=== PATIENT | female | born 1960 | race Caucasian/White ===

== ENCOUNTER 2021-11-10 05:54 | Emergency (ER) | payer SELFPAY ==
[2021-11-10 05:56] VITALS: BP 139/80; PULSE 90; RESP 20; TEMP 36.9; O2SAT 93; BMI 33.4
[2021-11-10 06:19] VITALS: BP 124/77; PULSE 88; RESP 16; O2SAT 97
--- NOTE | 2021-11-10 06:19 | XR_ITS ---
FINAL REPORT CLINICAL HISTORY: COUGH SHORTNESS OF AIR COMPARISON: November 27, 2015 FINDINGS: Two views of the chest were obtained. The heart size and pulmonary vascularity are within normal limits. The mediastinum is normal. There is mild bronchial wall thickening. There is no pneumothorax. The bony thorax is intact. IMPRESSION: Mild bronchial wall thickening may represent bronchitis. Reviewed, Interpreted and Dictated by Hal Conde III, MD Transcribed by Messi Diaz Authenticated by Hal Conde III, MD on 11/10/2021 07:18:11 AM [facility]
[2021-11-10 06:26] LABS: Influenza A, PCR Not Detected (NotDetected); Influenza B, PCR Not Detected (NotDetected)
[2021-11-10 06:34] LABS: Basophils % 0.5 % (0.1-2.0); Chloride 100 mmol/L (98-107); Eosinophils % 0.7 % (0.1-12.0); Hematocrit 42.1 % (37.0-47.0); Hemoglobin 13.7 g/dL (12.2-16.2); Lymphocytes # 0.8 K/mm3 (0.7-4.5); Lymphocytes % 18.9 % (10-50); Mean Corpuscular HGB Conc 32.7 g/dL (31.8-35.4); Mean Corpuscular Hemoglobin 30.4 pg (27.0-31.2); Mean Platelet Volume 8.3 fl (7.4-10.4); Monocytes # 0.2 K/mm3 (0.1-1.0); Monocytes % 4.9 % (1.7-9.3); Neutrophils % 75.1 % (37.0-80.0); Platelet Count 162 K/mm3 (142-424); Potassium 3.3 mmoL/L (3.5-5.1); Red Blood Count 4.52 M/mm3 (4.20-5.40); Red Cell Distribution Width 13.3 % (11.5-17.5); Sodium 136 mmol/L (136-145)
[2021-11-10 06:36] LABS: Alanine Aminotransferase 25 U/L (12-78); Aspartate Amino Transferase 65 U/L (14-36); Blood Urea Nitrogen 12 mg/dl (7-17); Creatinine Clearance Estimated 105 mL/min (50-200); Estimated Glomerular Filt Rate 64 ml/min (>60); GFR (African American) 77 ML/MIN (>60)
[2021-11-10 06:37] LABS: Albumin Level 3.8 g/dl (3.5-5.0); Albumin/Globulin Ratio 1.3 (1.1-1.8); Alkaline Phosphatase 95 U/L (38-126); Anion Gap 4.3 mEq/L (5-15); Bilirubin,Total 0.4 mg/dl (0.2-1.3); Calcium 7.6 mg/dl (8.4-10.2); Carbon Dioxide 35 mmol/L (22.0-30.0); Glucose 99 mg/dl (74-100); Total Protein,Serum 6.8 g/dl (6.3-8.2)
[2021-11-10 06:42] LABS: C-Reactive Protein 26.7 mg/L (0-4)
--- NOTE | 2021-11-10 06:57 | HMH.EDSOB ---
ED Disposition Clinical Impression: COVID-19, Tobacco use, Obesity (BMI 30-39.9) Disposition: Home, Self-Care Condition on Discharge: Good Instructions: DI for COVID-19 (Suspected or Confirmed ) Additional Instructions: use meds and see pcp for follow up Prescriptions: dexAMETHasone [Decadron] 6 mg PO DAILY #6 tab Transmission Status: Pending to [facility] levoFLOXacin [Levaquin 500mg tab] 500 mg PO DAILY #7 tab Transmission Status: Pending to [facility] Referrals: Brian Noonan MD [Primary Care Provider] - - Critical Care Critical Care Time: No Attestation: On , the high probability of a clinically significant, sudden or life threatening deterioration of the following system(s) required my full and direct attention, intervention and personal management. The time I documented below is in addition to time spent performing reported procedures but includes the following listed in this critical care notation. Medical Decision Making - Medical Records Medical records reviewed: Yes: I reviewed the patient's medical records. - Suresh Inquiry Pt receiving controlled substance: No Vital Signs: 11/10/21 05:56 11/10/21 06:19 Temperature 98.4 F Temperature Source Oral Pulse Rate 88 Pulse Rate [Left Radial] 90 Respiratory Rate 20 16 Blood Pressure 124/77 Blood Pressure [Left Arm] 139/80 Blood Pressure Mean [Left Arm] 99 Blood Pressure Source [Left Arm] Automatic Cuff Blood Pressure Position [Left Arm] Sitting 02 Sat by Pulse Oximetry 93 L 97 Oxygen Delivery Method Room Air Room Air - Lab Data Lab results reviewed: Yes: I reviewed the patient's lab results. Lab Results 11/10/21 06:10: WBC 4.0 L, RBC 4.52, Hgb 13.7, Hct 42.1, MCV 93.0, MCH 30.4, MCHC 32.7, RDW 13.3, Plt Count 162, MPV 8.3, Neut % (Auto) 75.1, Lymph % (Auto) 18.9, [place] % (Auto) 4.9, Eos % (Auto) 0.7, Baso % (Auto) 0.5, Neut # (Auto) 3.0, Lymph # (Auto) 0.8, [place] # (Auto) 0.2, Eos # (Auto) 0.0, Baso # (Auto) 0.0 11/10/21 06:10: Sodium 136, Potassium 3.3 L, Chloride 100, Carbon Dioxide 35 H, Anion Gap 4.3 L, BUN 12, Creatinine 0.90, Estimated Creat Clear 105, Estimated GFR 64, Est GFR ( Amer) 77, Glucose 99, Calcium 7.6 L, Total Bilirubin 0.4, AST 65 H, ALT 25, Alkaline Phosphatase 95, C-Reactive Protein 26.7 H, Total Protein 6.8, Albumin 3.8, Globulin 3.0, Albumin/Globulin Ratio 1.3 11/10/21 06:10: SARS-CoV-2 (PCR) Detected A, Influenza A Untype (PCR) Not detected, Influenza Type B (PCR) Not detected 11/10/21 06:10: ESR 18 Result diagrams: 11/10/21 06:10 11/10/21 06:10 Orders (Tests/Meds): ED MEDICATIONS Discontinued Medications Generic Name Dose Route Start Last Admin Trade Name Freq PRN Reason Stop Dose Admin Dexamethasone Sodium Phosphate 10 mg 11/10/21 07:22 11/10/21 07:24 Dexamethasone 4mg/Ml 5ml Mdv IV 11/10/21 07:23 10 mg ONCE ONE Administration Sodium Chloride 1,000 mls @ 999 mls/hr 11/10/21 06:30 11/10/21 06:23 Sod Chlor 0.9% 1000ml Bag IV 11/10/21 07:30 999 mls/hr .Q1H1M GULSHAN Administration ORDERS Category Date Time Status Procalcitonin Stat Lab 11/10/21 06:10 Received UA [Urinalysis and Microscopic] Stat Lab 11/10/21 07:25 Ordered - Radiology Data #1 Image(s): Chest Image Reviewed: Yes I have reviewed radiologist's interpretation Preliminary Findings: Abnormal (see report ) Medical Decision Narrative: has covid-19 with stable exam and cxr - discussed precautions and follow up and limit tob Resp/SOB HPI - General Chief Complaint: Upper Respiratory Infection Stated Complaint: sick x1 month pimple in nose,? UTI Time Seen by Provider: 11/10/21 06:20 Mode of Arrival: Ambulatory Source of Information: Patient, Medical Record Limitations: No Limitations Description of Symptoms (Recalled from ER Triage Doc. by RN): TIRED X 1 MONTH, PIMPLE IN NOSE X 1 MONTH, NOSE BLEED THREE WEEKS AGO, COUGH BUT REPORTS THIS IS CHRONIC RELATED TO SMOKI
[2021-11-10 07:02] LABS: Coronavirus 19, PCR Detected (NotDetected)
[2021-11-10 07:13] LABS: Erythrocyte Sedimentation Rate 18 mm/hr (0-30)
[2021-11-10 07:45] LABS: Microscopic, Urine URINE MICROSCOPIC (MICROSCOPIC)
[2021-11-10 08:00] LABS: Appearance,Urine CLEAR (Clear); Blood, Urine TRACE-I (Negative); Color,Urine ORANGE (Yellow); Glucose,Urine (UA) 1+ (Negative); Ketones,Urine TRACE (Negative); Leukocyte Esterase,Urine 2+ (Negative); Nitrate,Urine POSITIVE (Negative); Protein,Urine 2+ (Negative); Specific Gravity, Urine 1.025 (1.005-1.030); Urobilinogen,Urine >=8.0 EU/dl (0.2)
--- NOTE | 2021-11-10 08:00 | PC.NURSE ---
RT at bedside performing teaching for use of inhaler with aerochamber.
[2021-11-10 08:03] LABS: Procalcitonin 0.066 ng/mL (0.0-2.0)
[2021-11-10 08:08] LABS: Bilirubin,Urine 1+ (Negative)
[2021-11-10 08:13] LABS: Bacteria,Urine 1+ /lpf; Mucus,Urine Trace /lpf; RBC,Urine Occasional #/hpf (0-3)
[2021-11-10 08:24] VITALS: BP 121/78; PULSE 90; RESP 16; TEMP 36.9; O2SAT 96
== END 2021-11-10 08:25 | disposition home or self-care (01) ==
PROVIDERS: Emergency Provider Emergency Medicine; PCP Emergency Medicine
DX: N30.00 Acute cystitis without hematuria (principal); U07.1 COVID-19; F17.210 Nicotine dependence, cigarettes, uncomplicated
CPT/HCPCS: 71046; 80053; 81001; 84145; 85025; 85651; 86140; 87086; 96365; 96375; 99283; 99284; C9803; U0003; U0005

== ENCOUNTER 2021-11-25 13:52 | Emergency (ER) | payer SELFPAY ==
[2021-11-25 14:00] VITALS: BP 161/87; PULSE 81; RESP 17; TEMP 37.2; O2SAT 97; BMI 36.5
--- NOTE | 2021-11-25 14:33 | HMH.EDUTC ---
[facility] Disposition Clinical Impression: Encounter for laboratory testing for COVID-19 virus Disposition: Home, Self-Care Condition on Discharge: Good Instructions: DI for COVID-19 (Suspected or Confirmed ), Preventing the Spread of Coronavirus Discharge Instructions Additional Instructions: *Monitor Temp, Over the counter Motrin or Tylenol as directed/as needed Tylenol every 4 hours and Motrin every 6 hours (as long as your family doctor has told you that you can take it) for fever or pain. and straight to ER if unable to lower temp less than 101.0 after medication given Follow up IMMEDIATELY for new or worsening symptoms or no Noticeable improvement over the next 48-72 hours. 911 for difficulty breathing or swallowing You were tested for today for COVID19 your test result should be back in the next 24-48 hours, you may check your test results on the [facility] if you have trouble logging on you may call support Make sure to take your Vitamins Vit. C Vit D and Zinc if you can take them Referrals: Brian Noonan MD [Primary Care Provider] - As needed Time of Disposition: 14:35 Medical Decision Making - Suresh Inquiry Pt receiving controlled substance: No Suresh was queried for this patient: No Vital Signs: 11/25/21 14:00 Temperature 98.9 F Temperature Source Oral Pulse Rate [Right Brachial] 81 Respiratory Rate 17 Blood Pressure [Right Arm] 161/87 H Blood Pressure Mean [Right Arm] 111 Blood Pressure Source [Right Arm] Automatic Cuff Blood Pressure Position [Right Arm] Sitting 02 Sat by Pulse Oximetry 97 Oxygen Delivery Method Room Air Orders (Tests/Meds): ORDERS Category Date Time Status Covid-19 Nasal PCR ([facility]) Routine Lab 11/25/21 14:05 Received [facility] HPI - General Stated complaint: covid test Time Seen by Provider: 11/25/21 14:34 Mode of Arrival: Ambulatory Source of Information: Patient Limitations: No Limitations Description of Symptoms (Recalled from Triage Doc. by RN): PATIENT NEEDS COVID TEST TO RETURN TO WORK. TESTED POSITIVE 2 WEEKS AGO HEENT Symptoms (Recalled from RN notes): No Resp Symptoms (Recalled from RN notes): No Skin Symptoms (Recalled from RN notes): No MS Symptoms (Recalled from RN notes): No Functional Status (Recalled from RN notes): WNL - History of Present Illness Provider Complaint: Patient state that she was positive for COVID about 2 weeks ago for COVID and came in today to see if she could get tested to see if she is negative now to return to work Denies any symptoms at this time - Related Data Previous Rx's Medication Instructions Recorded dexAMETHasone [Decadron] 6 mg PO DAILY #6 tab 11/10/21 levoFLOXacin [Levaquin 500mg 500 mg PO DAILY #7 tab 11/10/21 tab] Allergies Allergy/AdvReac Type Severity Reaction Status Date / Time No Known Allergies Allergy Verified 11/25/21 14:19 - Worker's Comp Is this a Worker's Comp case?: No [facility] History - Hepatitis A Screen Drug use history?: No High risk sexual behaviors?: No History of sexually transmitted infection?: No Currently employed?: No Childcare worker?: No Do you have indoor plumbing?: Yes Do you have electricity?: Yes Attestation statement:: This patient has been screened for Hepatitis A risk factors. I have reviewed the patient's past medical history: Yes ROS Obtained: Yes All systems reviewed & no additional complaints, Yes Systems reviewed as appropriate & no additional complaints - Constitutional Constitutional: Reports system reviewed and no additional complaints, except as docu, Denies body ache, Denies chills, Denies fever(s), Denies headache(s) - ENT Ears, Nose, Mouth, and Throat: Reports system reviewed and no additional complaints, except as docu, Denies nasal congestion, Denies nasal discharge, Denies sore throat - Cardiovascular Cardiovascular: Reports system reviewed and no additional complaints, except as docu - Respiratory Respiratory: Reports s
[2021-11-25 14:40] VITALS: BP 161/87; PULSE 81; RESP 17; TEMP 37.2; O2SAT 97
== END 2021-11-25 14:43 | disposition home or self-care (01) ==
PROVIDERS: Emergency Provider Nurse Practitioner; PCP Emergency Medicine
DX: Z03.89 Encounter for observation for other suspected diseases and conditions ruled out (principal); Z20.822 Contact with and (suspected) exposure to COVID-19
CPT/HCPCS: C9803; U0003; U0005

== ENCOUNTER 2022-10-26 14:34 | Inpatient (IN) | payer SELFPAY ==
[2022-10-26] VITALS (32 sets, daily range): BP systolic 126–186; BP diastolic 71–122; PULSE 68–91; RESP 14–22; TEMP 36.6–36.8; O2SAT 93–98; BMI 31.9
--- NOTE | 2022-10-26 15:02 | XR_ITS ---
FINAL REPORT CLINICAL HISTORY: SHORTNESS OF AIR COMPARISON: 11/10/2021 FINDINGS: Two views of the chest were obtained. The heart size and pulmonary vascularity are within normal limits. The mediastinum is normal. There is hyperinflation of the lungs consistent with COPD. There is a large left pneumothorax of approximately 70%. The bony thorax is intact. IMPRESSION: Approximately 70% left pneumothorax. Findings discussed with Dr. Mayen in the ED at the time of dictation. Reviewed, Interpreted and Dictated by Hal Conde III, MD Transcribed by Anastasia Parish Authenticated and [facility]
[2022-10-26 15:14] LABS: Coronavirus 19, PCR Not Detected (NotDetected); Influenza A, PCR Not Detected (NotDetected); Influenza B, PCR Not Detected (NotDetected)
--- NOTE | 2022-10-26 15:23 | PC.NURSE ---
PT TO XR
--- NOTE | 2022-10-26 15:32 | PC.NURSE ---
PT RETURNED FROM XR
--- NOTE | 2022-10-26 16:02 | PC.NURSE ---
DR DEMPSEY AT BEDSIDE
--- NOTE | 2022-10-26 16:07 | PC.NURSE ---
paged dr aleman
--- NOTE | 2022-10-26 16:10 | HMH.EDGENADL ---
Discharge Plan Disposition Patient Disposition: Admitted As Inpatient Condition: Good Prescriptions Prescriptions: No Action No Known Home Medications Referrals Follow up/Referrals: Provider,MD Agustin [Primary Care Provider] - See instructions Clinical Impressions Clinical Impression: Spontaneous pneumothorax, Breast mass, right, Axillary adenopathy Discharge ED Provider: Jhoan Mayen General Adult HPI General Chief complaint: Shortness of Breath/Dyspnea Stated complaint: SOA Nausea diarrhea cough congestion Time Seen by Provider: 10/26/22 16:01 Mode of Arrival: Wheelchair Limitations: No Limitations Description of Symptoms (Recalled from ER Triage Doc. by RN): PT REPORTS SHORTNESS OF BREATH X 1 WEEK, FATIGUE, COUGH AND CONGESTION History of Present Illness HPI narrative: Patient states that 6 days ago on Sunday she suddenly got short of breath. She initially had some pain in the left side of her chest and shoulder blade area which has since resolved. She feels congested in the chest . No fever. No sputum production. No hemoptysis. No leg pain or swelling. She has no chronic lung problems. She is a smoker. She is on no medications. Related Data Home Medications Medication Instructions Recorded Confirmed No Known Home Medications 10/26/22 10/26/22 Allergies Allergy/AdvReac Type Severity Reaction Status Date / Time No Known Allergies Allergy Verified 11/25/21 14:19 [facility] Disclaimer: The information contained in this section may have been updated after the patient was seen, as this information can be updated by other users. Medical History (Updated 10/26/22 @ 19:31 by Jhoan Mayen MD) Breast cancer Kidney stones Surgical History (Updated 10/26/22 @ 15:31 by Melony Chavis RN) History of back surgery History of lumpectomy Hx of cholecystectomy Hx of tonsillectomy Family History (Updated 10/26/22 @ 15:31 by Melony Chavis RN) Other No significant family history Social History (Updated 10/26/22 @ 15:31 by Melony Chavis RN) Smoking Status: Current every day smoker alcohol intake: never current occupational status: employed Travel in the last 8 weeks: None ROS Obtained: Yes Systems reviewed as appropriate & no additional complaints except as documented Constitutional Constitutional: Denies fever(s), Denies headache(s) and Denies weakness ENT Ears, Nose, Mouth, and Throat: Denies headache(s), Denies nasal discharge and Denies sore throat Cardiovascular Cardiovascular: Reports chest pain Respiratory Respiratory: Reports shortness of breath, Reports cough and Denies hemoptysis Gastrointestinal Gastrointestingal: Denies abdominal pain, constipation, diarrhea or vomiting Genitourinary Female Genitourinary: Denies difficulty voiding, Denies dysuria and Denies flank pain Musculoskeletal Musculoskeletal: Denies numbness Neurologic Neurologic: Denies headache(s), Denies numbness and Denies weakness Physical Exam General General appearance: alert and in no apparent distress Head Head exam: atraumatic and normocephalic Eye Eye exam: Present normal appearance and EOMI ENT ENT exam: Present mucous membranes moist Neck Neck exam: Present normal inspection and trachea midline Chest Chest inspection: Present normal inspection and symmetric chest wall rise Respiratory Respiratory exam: Present other (Decreased breath sounds left); Absent respiratory distress Cardiovascular Cardiovascular exam: Present regular rate, normal rhythm and normal heart sounds Abdominal Exam Abdominal exam: Present soft and normal bowel sounds; Absent distention, tenderness, guarding, rebound or rigidity Extremities Exam Extremities exam: Present normal inspection Neurological Exam Neurological exam: Present alert and oriented X3 Psychiatric Psychiatric exam: Present normal affect and normal mood Skin Skin exam: Present warm and dry Medical Decision Making
--- NOTE | 2022-10-26 16:11 | PC.NURSE ---
DR. DEMPSEY SPEAKING WITH DR. BAKER
[2022-10-26 16:18] LABS: Chloride 102 mmol/L (98-107); Potassium 3.9 mmoL/L (3.5-5.1); Sodium 140 mmol/L (136-145)
[2022-10-26 16:20] LABS: Blood Urea Nitrogen 9 mg/dl (7-17); Creatinine Clearance Estimated 89 mL/min (50-200); Estimated Glomerular Filt Rate 64 ml/min (>60); GFR (African American) 77 ML/MIN (>60)
--- NOTE | 2022-10-26 16:20 | PC.NURSE ---
CONSENT SIGNED FOR CHEST TUBE
[2022-10-26 16:21] LABS: Alanine Aminotransferase 13 U/L (12-78); Albumin/Globulin Ratio 1.3 (1.1-1.8); Alkaline Phosphatase 87 U/L (38-126); Anion Gap 7.9 mEq/L (5-15); Aspartate Amino Transferase 29 U/L (14-36); Bilirubin,Total 0.3 mg/dl (0.2-1.3); Carbon Dioxide 34 mmol/L (22.0-30.0)
[2022-10-26 16:22] LABS: Glucose 95 mg/dl (74-100)
--- NOTE | 2022-10-26 16:22 | PC.NURSE ---
1622 PT TO ROOM 2 AND PLACED ON IT SALES CONSULTANT, O2 APPLIED
--- NOTE | 2022-10-26 16:32 | PC.NURSE ---
DR. DEMPSEY AT BEDSIDE DISCUSSING POC
[2022-10-26 16:56] LABS: Basophils # 0.1 K/mm3 (0-0.2); Basophils % 0.6 % (0.1-2.0); Eosinophils # 0.1 K/mm3 (0.0-0.4); Eosinophils % 1.3 % (0.1-12.0); Hematocrit 48.6 % (37.0-47.0); Hemoglobin 15.5 g/dL (12.2-16.2); Lymphocytes # 1.2 K/mm3 (0.7-4.5); Lymphocytes % 16.4 % (10-50); Mean Corpuscular HGB Conc 31.8 g/dL (31.8-35.4); Mean Corpuscular Hemoglobin 28.9 pg (27.0-31.2); Mean Corpuscular Volume 90.8 fl (81-99); Mean Platelet Volume 8.5 fl (7.4-10.4); Monocytes # 0.4 K/mm3 (0.1-1.0); Monocytes % 5.9 % (1.7-9.3); Neutrophils # 5.5 K/mm3 (1.8-7.8); Neutrophils % 75.6 % (37.0-80.0); Platelet Count 406 K/mm3 (142-424); Red Blood Count 5.35 M/mm3 (4.20-5.40); Red Cell Distribution Width 13.7 % (11.5-17.5); White Blood Count 7.3 K/mm3 (4.8-10.8)
--- NOTE | 2022-10-26 17:21 | XR_ITS ---
PROCEDURE INFORMATION: Exam: XR Chest Exam date and time: 10/26/2022 5:22 PM Age: 62 years old Clinical indication: Device placement; Chest tube; Additional info: S/P chest tube TECHNIQUE: Imaging protocol: Radiologic exam of the chest. Views: 1 view. COMPARISON: CR XR CHEST 2V 10/26/2022 3:17 PM FINDINGS: Tubes, catheters and devices: Left chest tube in good position. Lungs: Large residual thick-walled bulla in the left mid lung. Consider further characterization with CT chest. Pleural spaces: Decreased left pneumothorax since comparison. Heart/Mediastinum: Unremarkable. No cardiomegaly. Bones/joints: Unremarkable. IMPRESSION: Large residual thick-walled bulla in the left mid lung. Consider further characterization with CT chest.
--- NOTE | 2022-10-26 17:32 | PC.NURSE ---
Had triple drum operator page Dr Isabel for consult on patient. Dr Mayen talking to Dr Isabel
--- NOTE | 2022-10-26 17:32 | PC.NURSE ---
DR. DEMPSEY SPEAKING WITH DR BAKER
--- NOTE | 2022-10-26 17:38 | PC.NURSE ---
FAMILY AT BEDSIDE
--- NOTE | 2022-10-26 17:47 | PC.NURSE ---
1636 LIDOCAINE PER ED MD HR 87 96% 15 158/111 1638 2.5MG VERSED GIVEN 1644 2.5MG VERSED HR 90 95% 20 158/102 1650 2.5MG VERSED HR 89 96% 16 137/89 1650 INCISION MADE 1654 2.5 MG VERSED 1655 SUTURED PER MD AT 14 AT THE SKIN HR 81 97% 15 181/103 1700 1 MG DILAUDID HR 80 96% 1 163/94 1705 BILATERAL LUNG SOUNDS AUSCULTATED PER DR. DEMPSEY 1709 XR AT BEDSIDE
--- NOTE | 2022-10-26 18:05 | CT_ITS ---
PROCEDURE INFORMATION: Exam: CT Chest Without Contrast; Diagnostic Exam date and time: 10/26/2022 6:22 PM Age: 62 years old Clinical indication: Device placement; Chest tube; Additional info: Ptx, ? bullae on re-expansion cxr TECHNIQUE: Imaging protocol: Diagnostic computed tomography of the chest without contrast. Radiation optimization: All CT scans at this facility use at least one of these dose optimization techniques: automated exposure control; mA and/or kV adjustment per patient size (includes targeted exams where dose is matched to clinical indication); or iterative reconstruction. Other protocol: This patient has received 0 known CTs and 0 known cardiac nuclear medicine studies in the 12 months prior to the current study. COMPARISON: CR XR CHEST PORTABLE 10/26/2022 5:22 PM FINDINGS: Tubes, catheters and devices: Left chest tube tip positioned in the left upper lobe pulmonary parenchyma. Repositioning recommended. Left chest tube tip positioned in the left upper lobe pulmonary parenchyma. Repositioning recommended. Lungs: Left lower lobe atelectasis. Left lower lobe atelectasis posterior segment. Pleural spaces: No significant residual pneumothorax. No significant residual pneumothorax. Heart: Minimal coronary artery calcifications. No cardiomegaly. No pericardial effusion. Lymph nodes: Extensive left axillary adenopathy concerning for metastatic breast cancer versus lymphoma. Vasculature: Unremarkable. No aortic aneurysm. Gallbladder and bile ducts: Cholecystectomy. Kidneys and ureters: Atrophic right kidney. Intraperitoneal space: Ascites. Bones/joints: Unremarkable. No acute fracture. Soft tissues: 3.9 cm right breast mass subareolar concerning for primary breast cancer. Subcutaneous emphysema left chest laterally. IMPRESSION: 1. Left chest tube tip positioned in the left upper lobe pulmonary parenchyma. Repositioning recommended. No significant residual pneumothorax. 2. Left chest tube tip positioned in the left upper lobe pulmonary parenchyma. Repositioning recommended. No significant residual pneumothorax. 3. 3.9 cm right breast mass subareolar concerning for primary breast cancer. 4. Extensive left axillary adenopathy concerning for metastatic breast cancer versus lymphoma. 5. Subcutaneous emphysema left chest laterally. COMMENTS: In the absence of a history or active diagnosis of lung cancer, it is recommended that this patient with emphysema be evaluated for enrollment in a low dose CT lung cancer screening program.
--- NOTE | 2022-10-26 18:15 | PC.NURSE ---
PT TO CT
--- NOTE | 2022-10-26 18:35 | PC.NURSE ---
PT RETURNED FROM CT
--- NOTE | 2022-10-26 18:39 | PC.NURSE ---
DR. DEMPSEY ATTEMPTED TO REACH HOSPITALIST, NO ANSWER
--- NOTE | 2022-10-26 18:54 | PC.NURSE ---
DR DEMPSEY SPEAKING WITH [employer] [facility]
--- NOTE | 2022-10-26 19:07 | PC.NURSE ---
DR. DEMPSEY SPEAKING WITH HOSPITALIST
--- NOTE | 2022-10-26 19:09 | PC.NURSE ---
DR DEMPSEY SPEAKING TO PASCUAL FOR ADMISSION
--- NOTE | 2022-10-26 19:16 | PC.NURSE ---
Dr Mayen talking to Dr Beltran about patient.
--- NOTE | 2022-10-26 19:19 | PC.NURSE ---
HOUSE CALLED FOR ADMISSION
--- NOTE | 2022-10-26 19:44 | PC.NURSE ---
Pt given dilaudid and ice chips per Dr Mayen.
--- NOTE | 2022-10-26 19:59 | EXP.HP ---
History of Present Illness *Admission Date: 10/26/22 *Reason for visit:: Shortness of air, chest pain *History of present illness: Ms. Long is a 62-year-old female who presented to [facility] due to a 6-day history of shortness of air associated with left sided chest pain and left shoulder blade pain. In the ER imaging of the chest showed a 70% pneumothorax on the left. The patient underwent CT placement with a 24 [place]ian chest tube for the pneumothorax. Imaging following the procedure showed a large residual thick walled bulla in the left mid lung zone and recommended a CT of the chest. CT of the chest showed re-expansion of the pneumothroax around the chest tube and recommended repositioning of the tube. ER Physician spoke with Surgeon commission associate who recommended no repositioning of the tube at this time and will follow in consultation. CT of the chest also showed concern for 3.9 cm right breast mass. The patient was seen in the ER following the procedure, the chest tube is currently on LWS at 20 cm H20. The plan of care to have surgery consult in the am, control pain was discussed with the patient on admission. ER Physician made the patient and family aware of CT findings on the right breast mass. [facility] Disclaimer: The information contained in this section may have been updated after the patient was seen, as this information can be updated by other users. Medical History Breast cancer Kidney stones Surgical History H/O: hysterectomy History of back surgery History of lumpectomy Hx of cholecystectomy Hx of tonsillectomy Family History No significant family history Social History Smoking Status: Current every day smoker alcohol intake: never current occupational status: employed Travel in the last 8 weeks: None Review of Systems Constitutional Constitutional: Denies headache(s) and Denies weakness Eyes Eyes: Reports system reviewed and no additional complaints, except as documented ENT Ears, Nose, Mouth, and Throat: Reports system reviewed and no additional complaints, except as documented and Denies headache(s) *Cardiovascular Cardiovascular: Reports chest pain and Reports dyspnea *Respiratory Respiratory: Reports dyspnea and Reports pain on inspiration *Gastrointestinal Gastrointestinal: Reports system reviewed and no additional complaints, except as documented *Genitourinary Genitourinary: Reports system reviewed and no additional complaints, except as documented *Musculoskeletal Musculoskeletal: Denies numbness Integumentary/Breasts Skin/Breast: Reports system reviewed and no additional complaints, except as documented *Neurologic Neurologic: Denies headache(s), Denies numbness and Denies weakness Psychiatric Psychiatric: Reports system reviewed and no additional complaints, except as documented Endocrine Endocrine: Reports system reviewed and no additional complaints, except as documented Hematologic/Lymphatic Hematologic/Lymphatic: Reports system reviewed and no additional complaints, except as documented Allergic/Immunologic Allergic/Immunologic: Reports system reviewed and no additional complaints, except as documented Meds Home Medications and Allergies Home Medications Medication Instructions Recorded Confirmed Type No Known Home Medications 10/26/22 10/26/22 History New Prescriptions to Start Prescriptions: Allergies Allergy/AdvReac Type Severity Reaction Status Date / Time No Known Allergies Allergy Verified 11/25/21 14:19 Exam Data for Last 24 hours Vital signs and Labs for Last 24 Hours: Temp Pulse Resp BP Pulse Ox 98.3 F 73 18 143/81 H 94 L 10/26/22 14:35 10/26/22 18:50 10/26/22 18:50 10/26/22 18:50 10/26/22 18:50 [place]
--- NOTE | 2022-10-26 20:27 | PC.NURSE ---
report called to AMIE Erwin
--- NOTE | 2022-10-26 23:25 | PC.NURSE ---
Pt arrived to floor via stretcher @ [id number]
[2022-10-27] VITALS (8 sets, daily range): BP systolic 118–154; BP diastolic 62–81; PULSE 66–80; RESP 16–22; TEMP 36.5–37.4; O2SAT 93–98; BMI 32.1; BMI 30.7
--- NOTE | 2022-10-27 02:35 | PC.NURSE ---
Pt report given to Sugey Burgess RN.
--- NOTE | 2022-10-27 04:39 | PC.NURSE ---
NO ACUTE CHANGES SINCE RECEIVING REPORT FROM Kadie FATIMA RN AT 0100. PT HAS RESTED WELL. NO C/O OF PAIN. 24F CHEST TUBE REMAINS IN PLACE. LUNG SOUNDS ARE DIMINISHED WITH FINE CRACKLES. VSS. CALL SWIFT WITHIN REACH.
--- NOTE | 2022-10-27 06:25 | EXP.SURG.CON ---
History of Present Illness *Admission Date: 10/26/22 *History of present illness: Ms. Long is a 62-year-old female who presented to [facility] due to a 6-day history of shortness of air associated with left sided chest pain and left shoulder blade pain. In the ER imaging of the chest showed a 70% pneumothorax on the left. The patient underwent CT placement with a 24 english chest tube for the pneumothorax. Imaging following the procedure showed reexpansion of pneumothorax but findings of a large residual thick walled bulla in the left mid lung zone and recommended a CT of the chest. CT of the chest showed re-expansion of the pneumothroax around the chest tube and interestingly recommended consideration of repositioning of the tube. Given these findings the ER physician ER Physician spoke with Surgeon sr. manager corporate communications who recommended no repositioning of the tube at this time as the lung was fully reexpanded with no evidence of any air leak and will follow in consultation. CT of the chest also showed concern for 3.9 cm right breast mass. She has a history of right-sided breast cancer treated in 1995 with lumpectomy and radiation. She states that she has not had imaging for quite some time. [facility] Disclaimer: The information contained in this section may have been updated after the patient was seen, as this information can be updated by other users. Medical History Breast cancer Kidney stones Surgical History H/O: hysterectomy History of back surgery History of lumpectomy Hx of cholecystectomy Hx of tonsillectomy Family History No significant family history Social History Smoking Status: Current every day smoker alcohol intake: never current occupational status: employed Travel in the last 8 weeks: None Review of Systems Constitutional Constitutional: Denies headache(s) and Denies weakness ENT Ears, Nose, Mouth, and Throat: Denies headache(s) *Musculoskeletal Musculoskeletal: Denies numbness *Neurologic Neurologic: Denies headache(s), Denies numbness and Denies weakness Meds Home Medications and Allergies Home Medications Medication Instructions Recorded Confirmed Type No Known Home Medications 10/26/22 10/26/22 History New Prescriptions to Start Prescriptions: Allergies Allergy/AdvReac Type Severity Reaction Status Date / Time No Known Allergies Allergy Verified 11/25/21 14:19 Exam (Inpt) Vital signs and Labs for Last 24 Hours: Temp Pulse Resp BP Pulse Ox 98.1 F 71 16 145/81 H 96 10/27/22 04:00 10/27/22 04:00 10/27/22 04:00 10/27/22 04:00 10/27/22 04:00 Laboratory Results - last 24 hr 10/26/22 14:55: SARS-CoV-2 (PCR) Not detected, Influenza A Untype (PCR) Not detected, Influenza Type B (PCR) Not detected 10/26/22 15:15: WBC 7.3, RBC 5.35, Hgb 15.5, Hct 48.6 H, MCV 90.8, MCH 28.9, MCHC 31.8, RDW 13.7, Plt Count 406, MPV 8.5, Neut % (Auto) 75.6, Lymph % (Auto) 16.4, [place] % (Auto) 5.9, Eos % (Auto) 1.3, Baso % (Auto) 0.6, Neut # (Auto) 5.5, Lymph # (Auto) 1.2, [place] # (Auto) 0.4, Eos # (Auto) 0.1, Baso # (Auto) 0.1 10/26/22 15:15: Sodium 140, Potassium 3.9, Chloride 102, Carbon Dioxide 34 H, Anion Gap 7.9, BUN 9, Creatinine 0.90, Estimated Creat Clear 89, Estimated GFR 64, Est GFR ( Amer) 77, Glucose 95, Calcium 9.0, Total Bilirubin 0.3, AST 29, ALT 13, Alkaline Phosphatase 87, Total Protein 7.0, Albumin 4.0, Globulin 3.0, Albumin/Globulin Ratio 1.3 I & O for Labs for Last 24 Hours: Intake & Output 10/24/22 10/25/22 10/26/22 10/27/22 11:59 11:59 11:59 11:59 Weight 212 lb 3.2 oz Constitutional: no acute distress Head: Present normocephalic Respiratory: Absent accessory muscle use Cardiac: Present Regular Rhythm GI: Present soft
--- NOTE | 2022-10-27 06:40 | XR_ITS ---
FINAL REPORT CLINICAL HISTORY: pneumothorax follow-up COMPARISON: 10/26/2022 FINDINGS: A single portable view of the chest was obtained. Left-sided chest tube remains in place. The heart size and pulmonary vascularity are within normal limits. The mediastinum is within normal limits. There is mild atelectasis in the left lung base. No pneumothorax. The bony thorax is intact. IMPRESSION: No pneumothorax. Mild atelectasis left lung base. Reviewed, Interpreted and Dictated by Hal Conde III, MD Transcribed by Anastasia Parish Authenticated and [facility]
--- NOTE | 2022-10-27 08:13 | EXP.ACUTE.PN ---
Subjective *Date: 10/27/22 *Time: 11:11 Interval history: Patient doing well this morning. On nasal cannula oxygen for benefit of her pneumothorax, not for supplemental oxygen need. Chest pain stable. Tube remains in place with minimal output from left chest. Denies any nausea or vomiting. Tolerating current pain regimen. Medical Exam Vital signs and Labs for Last 24 Hours: Vital Signs Temp Pulse Pulse Resp BP BP Pulse Ox 10/27/22 04:00 98.1 F 71 16 145/81 H 96 10/27/22 04:00 70 10/27/22 00:00 98.6 F 73 18 154/76 H 96 10/26/22 22:29 98 F 72 18 140/80 10/26/22 22:25 80 14 163/88 H 97 10/26/22 22:00 77 14 164/84 H 98 10/26/22 21:30 77 21 145/89 H 97 10/26/22 21:00 22 161/91 H 10/26/22 20:30 73 16 164/92 H 96 10/26/22 18:50 73 18 143/81 H 94 L 10/26/22 18:45 71 17 154/81 H 95 10/26/22 18:40 69 153/74 H 95 10/26/22 18:35 68 156/74 H 94 L 10/26/22 18:31 72 159/84 H 94 L 10/26/22 18:10 70 135/73 96 10/26/22 18:05 69 139/71 97 10/26/22 18:00 71 126/82 97 10/26/22 17:55 71 142/85 H 96 10/26/22 17:50 72 129/79 96 10/26/22 17:45 78 141/79 H 93 L 10/26/22 17:40 70 144/105 H 93 L 10/26/22 17:35 79 138/79 95 10/26/22 17:30 78 144/79 H 96 10/26/22 17:25 74 140/74 95 10/26/22 17:20 76 142/82 H 94 L 10/26/22 17:15 74 155/83 H 95 10/26/22 17:10 76 143/111 H 94 L 10/26/22 17:05 77 146/94 H 98 10/26/22 17:00 82 163/94 H 97 10/26/22 16:55 81 181/103 H 96 10/26/22 16:50 90 137/89 96 10/26/22 16:45 91 H 152/122 H 97 10/26/22 16:40 86 158/102 H 96 10/26/22 16:37 87 158/111 H 96 10/26/22 14:35 98.3 F 88 20 186/110 H 95 Intake and Output 10/26/22 10/27/22 10/27/22 23:59 07:59 15:59 Intake Total 709 / 709 Output Total 200 / 200 Balance 509 / 509 Intake: Intake, Total IV Amount 709 / 709 0.9 % Sodium Chloride 1,000 ml 709 / 709 @ 100 mls/hr IV .Q10H [facility] Rx#: [id number] Output: Output, Urine Amount 200 / 200 Other: Number of Unmeasured Voids 1 Weight 96.252 kg Patient Weight 10/27/22 23:59 Weight 96.252 kg Laboratory Results - last 24 hr 10/26/22 14:55: SARS-CoV-2 (PCR) Not detected, Influenza A Untype (PCR) Not detected, Influenza Type B (PCR) Not detected 10/26/22 15:15: WBC 7.3, RBC 5.35, Hgb 15.5, Hct 48.6 H, MCV 90.8, MCH 28.9, MCHC 31.8, RDW 13.7, Plt Count 406, MPV 8.5, Neut % (Auto) 75.6, Lymph % (Auto) 16.4, [place] % (Auto) 5.9, Eos % (Auto) 1.3, Baso % (Auto) 0.6, Neut # (Auto) 5.5, Lymph # (Auto) 1.2, [place] # (Auto) 0.4, Eos # (Auto) 0.1, Baso # (Auto) 0.1 10/26/22 15:15: Sodium 140, Potassium 3.9, Chloride 102, Carbon Dioxide 34 H, Anion Gap 7.9, BUN 9, Creatinine 0.90, Estimated Creat Clear 89, Estimated GFR 64, Est GFR ( Amer) 77, Glucose 95, Calcium 9.0, Total Bilirubin 0.3, AST 29, ALT 13, Alkaline Phosphatase 87, Total Protein 7.0, Albumin 4.0, Globulin 3.0, Albumin/Globulin Ratio 1.3 I & O for Labs for Last 24 Hours: Intake & Output 10/24/22 10/25/22 10/26/22 10/27/22 23:59 23:59 23:59 23:59 Intake Total 709 / 709 Output Total 200 / 200 Balance 509 / 509 Weight 95.254 kg 96.252 kg Constitutional: Present no acute distress and obese Head: Present atraumatic and normocephalic ENT: Present normal exam Neck: Present normal inspection Respiratory: Present wheezes and normal respiratory effort; Absent accessory muscle use, rhonchi or crackles Comment:: Chest tube left chest Cardiac: Present Reg Rate and Rhythm GI: Present soft and normal bowel sounds; Absent distention or tenderness Extremities: Present normal inspection and full ROM Skin: Present intact; Absent erythema Neuro: Present Cranial Nerve 2-12 Intact, Grossly Intact, alert, awake, oriented x 3 and moves all e
--- NOTE | 2022-10-27 18:00 | PC.NURSE ---
medicated for pain x3 with prn morphine this shift with good effectiveness. chest tube to water seal this shift per allran from surgery. otherwise no acute changes
[2022-10-28] VITALS (7 sets, daily range): BP systolic 121–168; BP diastolic 74–95; PULSE 66–86; RESP 16–24; TEMP 36.6–37; O2SAT 91–98; BMI 34.1
--- NOTE | 2022-10-28 07:12 | PC.NURSE ---
Pt has c/o pain in left chest 3x t/o night. PRN pain medication administered. No other c/o voiced to staff. Fine crackles scattered t/o lung field. 5ml of output from chest tube t/o night. Call light within reach.
[2022-10-28 08:35] LABS: Basophils # 0.1 K/mm3 (0-0.2); Basophils % 0.7 % (0.1-2.0); Eosinophils # 0.1 K/mm3 (0.0-0.4); Eosinophils % 1.8 % (0.1-12.0); Hematocrit 48.1 % (37.0-47.0); Hemoglobin 15.1 g/dL (12.2-16.2); Lymphocytes # 1.1 K/mm3 (0.7-4.5); Lymphocytes % 16.1 % (10-50); Mean Corpuscular HGB Conc 31.3 g/dL (31.8-35.4); Mean Corpuscular Hemoglobin 29.1 pg (27.0-31.2); Mean Corpuscular Volume 92.8 fl (81-99); Mean Platelet Volume 7.9 fl (7.4-10.4); Monocytes # 0.3 K/mm3 (0.1-1.0); Monocytes % 3.9 % (1.7-9.3); Neutrophils # 5.1 K/mm3 (1.8-7.8); Neutrophils % 77.6 % (37.0-80.0); Platelet Count 297 K/mm3 (142-424); Red Blood Count 5.19 M/mm3 (4.20-5.40); Red Cell Distribution Width 13.5 % (11.5-17.5); White Blood Count 6.6 K/mm3 (4.8-10.8)
[2022-10-28 08:42] LABS: Chloride 104 mmol/L (98-107); Potassium 4.2 mmoL/L (3.5-5.1); Sodium 137 mmol/L (136-145)
[2022-10-28 08:45] LABS: Anion Gap 7.2 mEq/L (5-15); Blood Urea Nitrogen 10 mg/dl (7-17); Calcium 8.1 mg/dl (8.4-10.2); Carbon Dioxide 30 mmol/L (22.0-30.0); Creatinine Clearance Estimated 95 mL/min (50-200); Estimated Glomerular Filt Rate 64 ml/min (>60); GFR (African American) 77 ML/MIN (>60); Glucose 96 mg/dl (74-100)
--- NOTE | 2022-10-28 09:03 | PC.NURSE ---
tech note; notified nurse of high blood pressure for 0800 vital signs.
--- NOTE | 2022-10-28 09:32 | EXP.PN ---
Subjective *Date: 10/28/22 *Time: 09:32 Interval history: Date of service October 28, 2022 The patient reported some pain through the night but no associated dyspnea or acute pain this morning. Nursing staff (Jorge HOLLOWAY) reports that she remains afebrile with stable vital signs and saturating appropriately on 4 L of oxygen via nasal cannula. She does not use home oxygen. She reports a chronic tobacco use history. Her chest tube was waterseal yesterday. Her chest x-ray yesterday identified no further pneumothorax. General surgery is following. Exam Data for Last 24 hours Vital signs and Labs for Last 24 Hours: Temp Pulse Resp BP Pulse Ox 98.4 F 85 16 161/74 H 91 L 10/28/22 08:00 10/28/22 08:00 10/28/22 08:00 10/28/22 08:00 10/28/22 08:00 Laboratory Results - last 24 hr 10/28/22 07:54: WBC 6.6, RBC 5.19, Hgb 15.1, Hct 48.1 H, MCV 92.8, MCH 29.1, MCHC 31.3 L, RDW 13.5, Plt Count 297 D, MPV 7.9, Neut % (Auto) 77.6, Lymph % (Auto) 16.1, [place] % (Auto) 3.9, Eos % (Auto) 1.8, Baso % (Auto) 0.7, Neut # (Auto) 5.1, Lymph # (Auto) 1.1, [place] # (Auto) 0.3, Eos # (Auto) 0.1, Baso # (Auto) 0.1 10/28/22 07:54: Sodium 137, Potassium 4.2, Chloride 104, Carbon Dioxide 30, Anion Gap 7.2, BUN 10, Creatinine 0.90, Estimated Creat Clear 95, Estimated GFR 64, Est GFR ( Amer) 77, Glucose 96, Calcium 8.1 L I & O for Last 24 hours: Intake & Output 10/25/22 10/26/22 10/27/22 10/28/22 23:59 23:59 23:59 23:59 Intake Total 2352 / 2352 1184 / 1184 Output Total 750 / 750 705 / 705 Balance 1602 / 1602 479 / 479 Weight 95.254 kg 92 kg 102.194 kg Constitutional Constitutional: no acute distress and cooperative *Routine HEENT Exam Head: Present normocephalic Eye: Present EOMI and PERRL ENT: Present mucous membranes moist *Routine Neck Exam Neck: Present supple; Absent lymphadenopathy Routine Chest/Breast/Axilla Exam Comments: Right chest/breast surgical scar, left mid axillary chest tube *Routine Respiratory Exam Respiratory: Present rhonchi, wheezes, diminished air movement, normal respiratory effort and symmetric chest movement *Routine Cardiovascular Exam Cardiovascular: Present RRR *Routine Abdominal Exam Abdominal: Present soft and normoactive bowel sounds; Absent tenderness *Routine Extremities Exam Extremities: Present pulses intact and normal capillary refill; Absent cyanosis, clubbing or edema *Routine Skin Exam Skin: Present warm; Absent rash *Routine Neurological Exam Neurological: Present alert, oriented X3, moving all extremities, normal tone, vision grossly intact, hearing grossly intact and normal speech Routine Psychiatric Exam Psychiatric: Present normal affect, normal thought process, cooperative, good insight and good judgment Assessment and Plan *Assessment and plan (1) Spontaneous pneumothorax: Status: Acute Category: Medical Code(s): J93.83 - Other pneumothorax (2) Breast mass: Status: Acute Category: Medical Code(s): N63.0 - Unspecified lump in unspecified breast (3) COPD (chronic obstructive pulmonary disease): Status: Acute Category: Medical Code(s): J44.9 - Chronic obstructive pulmonary disease, unspecified (4) Tobacco abuse: Status: Acute Category: Medical Code(s): Z72.0 - Tobacco use Plan 62-year-old female with past medical history of breast cancer on the right in the s/p Lumpectomy, chemotherapy, radiation and lymph node removal presents due to acute and worsening shortness of air associated with left chest and shoulder pain imaging shows a 70% pneumothorax on the left and a right breast mass concerning for malignancy. Surgery consulted to manage chest tube. Problems addressed as follows: - Spontaneous Pneumothorax (POA) Chest tube placed in the ER. Surgery consulted help manage. Chest x-ray and CT imaging reviewed. Follow-up chest x-ray (2/3) imaging identifies no further pneumothorax and chest tub
--- NOTE | 2022-10-28 09:37 | XR_ITS ---
PROCEDURE INFORMATION: Exam: XR Chest Exam date and time: 10/28/2022 10:16 AM Age: 62 years old Clinical indication: Shortness of breath; Additional info: Pneumothorax on left TECHNIQUE: Imaging protocol: Radiologic exam of the chest. Views: 1 view. Total images: 1 COMPARISON: CR XR CHEST PORTABLE 10/27/2022 8:03 AM FINDINGS: Tubes, catheters and devices: Left-sided chest tube is in place. Lungs: Atelectatic changes noted within both lung bases. Pleural spaces: No definite pneumothorax as imaged. Further evaluation is recommended as clinically warranted. Heart/Mediastinum: Unremarkable. No cardiomegaly. Bones/joints: Unremarkable. Soft tissues: Surgical clips noted within the right axilla. Left lateral subcutaneous emphysematous changes. IMPRESSION: 1. No definite pneumothorax as imaged. Further evaluation is recommended as clinically warranted. 2. Left-sided chest tube is in place. 3. Atelectatic changes noted within both lung bases.
--- NOTE | 2022-10-28 10:44 | XR_ITS ---
PROCEDURE INFORMATION: Exam: XR Chest Exam date and time: 10/28/2022 10:51 AM Age: 62 years old Clinical indication: Device placement; Chest tube; Additional info: Pneumothorax / chest tube removed TECHNIQUE: Imaging protocol: Radiologic exam of the chest. Views: 2 views. Total images: 2 COMPARISON: CR XR CHEST PORTABLE 10/28/2022 10:16 AM FINDINGS: Tubes, catheters and devices: Previously noted chest tube has been removed. Lungs: Bilateral hyperinflation is present. Pleural spaces: No evidence of pneumothorax as imaged. Right pleural effusion. Heart/Mediastinum: Unremarkable. No cardiomegaly. Bones/joints: Unremarkable. Soft tissues: Surgical clips noted within the right axilla. IMPRESSION: 1. Previously noted chest tube has been removed. 2. No evidence of pneumothorax as imaged. 3. Bilateral hyperinflation is present. 4. Right pleural effusion.
--- NOTE | 2022-10-28 10:47 | P.PN_ITS ---
Subjective Patient reports: no new complaints Exam Data for Last 24 hours Vital signs and Labs for Last 24 Hours: Temp Pulse Resp BP Pulse Ox 98.4 F 85 16 161/74 H 91 L 10/28/22 08:00 10/28/22 08:00 10/28/22 08:00 10/28/22 08:00 10/28/22 08:00 Laboratory Results - last 24 hr 10/28/22 07:54: WBC 6.6, RBC 5.19, Hgb 15.1, Hct 48.1 H, MCV 92.8, MCH 29.1, M CHC 31.3 L, RDW 13.5, Plt Count 297 D, MPV 7.9, Neut % (Auto) 77.6, Lymph % (Auto) 16.1, [place] % (Auto) 3.9, Eos % (Auto) 1.8, Baso % (Auto) 0.7, Neut # (Auto) 5.1, Lymph # (Auto) 1.1, [place] # (Auto) 0.3, Eos # (Auto) 0.1, Baso # (Auto) 0.1 10/28/22 07:54: Sodium 137, Potassium 4.2, Chloride 104, Carbon Dioxide 30, Anion Gap 7.2, BUN 10, Creatinine 0.90, Estimated Creat Clear 95, Estimated GFR 64, Est GFR ( Amer) 77, Glucose 96, Calcium 8.1 L I & O for Last 24 hours: Intake & Output 10/25/22 10/26/22 10/27/22 10/28/22 11:59 11:59 11:59 11:59 Intake Total 709 / 709 2827 / 2827 Output Total 200 / 200 1255 / 1255 Balance 509 / 509 1572 / 1572 Weight 202 lb 13.204 oz 225 lb 4.8 oz Routine Chest/Breast/Axilla Exam Comments: No air leak. Progress Note: A&P Assessment and plan (1) Spontaneous pneumothorax: Status: Acute Assessment and plan: Removed chest tube. (2) Breast mass: Status: Acute (3) COPD (chronic obstructive pulmonary disease): Status: Acute (4) Tobacco abuse: Status: Acute
--- NOTE | 2022-10-28 10:47 | PC.NURSE ---
chest tube removed at bedside with dr aleman. pt tolerated well. 2mg morphine given iv pre procedure per love v/o
--- NOTE | 2022-10-28 16:32 | PC.NURSE ---
chest tube removed this shift. room air obtained and was 86% on room air. 4lnc for o2 support reapplied. was treated once for pain with morphine before chest tube removed. has not c/o pain again thus far.
[2022-10-29] VITALS: BP 115/74; PULSE 74; PULSE 80; RESP 20; TEMP 37.3; O2SAT 99
[2022-10-29 04:00] VITALS: BP 143/72; PULSE 82; PULSE 90; RESP 20; TEMP 37.2; O2SAT 96; BMI 34.7
--- NOTE | 2022-10-29 05:19 | PC.NURSE ---
Pt. was treated twice during my shift for pain. No other changes noted.
--- NOTE | 2022-10-29 07:50 | PC.NURSE ---
saturation 86% on Room air.
[2022-10-29 08:00] VITALS: BP 156/60; PULSE 81; PULSE 82; RESP 20; TEMP 37; O2SAT 97
--- NOTE | 2022-10-29 08:01 | EXP.DC.SUM ---
General Admission date:: 10/26/22 Discharge date: 10/29/22 HPI HPI HPI: Ms. Long is a 62-year-old female who presented to [facility] due to a 6-day history of shortness of air associated with left sided chest pain and left shoulder blade pain. In the ER imaging of the chest showed a 70% pneumothorax on the left. The patient underwent CT placement with a 24 armenian chest tube for the pneumothorax. Imaging following the procedure showed reexpansion of pneumothorax but findings of a large residual thick walled bulla in the left mid lung zone and recommended a CT of the chest. CT of the chest showed re-expansion of the pneumothroax around the chest tube and interestingly recommended consideration of repositioning of the tube. Given these findings the ER physician ER Physician spoke with Surgeon chemical detection expert who recommended no repositioning of the tube at this time as the lung was fully reexpanded with no evidence of any air leak and will follow in consultation. CT of the chest also showed concern for 3.9 cm right breast mass. She has a history of right-sided breast cancer treated in 1995 with lumpectomy and radiation. She states that she has not had imaging for quite some time. Hospital Course Hospital Course Hospital Course: The patient was admitted to the medical surgical unit with continuous pulse oximetry monitoring. Her left chest tube was water-sealed with minimal output noted and improved symptomatology. Serial chest x-ray identified resolve of pneumothorax. Her oxygen requirements improved and the patient saturated appropriately on 4 L of oxygen via nasal cannula. Room air oxygen saturations dropped below 88. Her chest tube was removed and she continued to identify improvement with no further symptomatology and tolerated supplemental oxygen with good saturations. On admission a chronic smoking history was assessed as well as COPD. She reported no home oxygen or inhalation therapy. She reported no routine PCP. ED/admission CT scan of the chest identified concerns with a new right 3.9cm mass with left axillary adenopathy. Her past history of right breast cancer was noted. General surgery recommended ongoing outpatient evaluation for findings on CT scan of the chest and history of breast cancer. The patient inquired about discharge home to follow-up with her general surgeon. We recommended follow-up with PCP, complete smoking cessation and oxygen supplementation with inhaler therapy prescribed. Staff are assisting with discharge planning including home oxygen recommendations. We have recommended a follow-up with her PCP in 1 week and general surgery as scheduled. I spent 35 minutes in [id number] time with the patient and nursing staff concerning the discharge process. We discussed the admitting diagnoses and hospital course. We discussed identified improvement and the patient's desire to be discharged. We reviewed inpatient studies and imaging. The patient voiced understanding on the importance of follow-up with her primary care provider and general surgery. The patient plans to be compliant with the medication regimen prescribed and follow-up appointments. She understands the importance of complete smoking cessation. She understands that she can return to the emergency department with any sudden changes or concerns. Exam Data for Last 24 hours Vital signs and Labs for Last 24 Hours: Temp Pulse Resp BP Pulse Ox 98.9 F 82 20 143/72 H 96 10/29/22 04:00 10/29/22 04:00 10/29/22 04:00 10/29/22 04:00 10/29/22 04:00 Laboratory Results - last 24 hr 10/28/22 07:54: WBC 6.6, RBC 5.19, Hgb 15.1, Hct 48.1 H, MCV 92.8, MCH 29.1, MCHC 31.3 L, RDW 13.5, Plt Count 297 D, MPV 7.9, Neut % (Auto) 77.6, Lymph % (Auto) 16.1, [place] % (Auto) 3.9, Eos % (Auto) 1.8, Baso % (Auto) 0.7, Neut # (Auto) 5.1, Lymph # (Auto) 1.1, [place] # (Auto) 0.3, Eos # (Auto) 0.1, Baso # (Auto) 0.1 10/28/22 07:54: Sodium 137, Potassium 4.2, Chlo
--- NOTE | 2022-10-29 10:10 | HMH.PHAINT1 ---
Pharmacy Intervention Comments: DISCHARGE MEDICATION COUNSELING PROVIDED. DISCUSSED STARTING THE FOLLOWING: -SYMBICORT (1 PUFF TWICE DAILY, FOR COPD, MAINTENANCE INHALER, RINSE MOUTH AFTER USE TO AVOID DEVELOPING THRUSH) -COMBIVENT (ONE PUFF FOUR TIMES DAILY, FOR SHORTNESS OF BREATH, MAY CAUSE ELEVATED HEART RATE, JITTERY/RESTLESS FEELING) PATIENT VERBALIZED NO QUESTIONS AT THIS TIME.
--- NOTE | 2022-10-29 10:23 | XR_ITS ---
PROCEDURE INFORMATION: Exam: XR Chest Exam date and time: 10/29/2022 10:32 AM Age: 62 years old Clinical indication: Condition or disease; Lung condition and disease; Pneumothorax; Additional info: Pneumothorax- f/u chest tube removed yesterday TECHNIQUE: Imaging protocol: Radiologic exam of the chest. Views: 2 views. COMPARISON: CR XR CHEST 2V 10/28/2022 10:51 AM FINDINGS: Tubes, catheters and devices: Interval removal of left chest tube. Lungs: No evidence of pneumonia or interstitial edema. Punctate granuloma in the left lower lobe Pleural spaces: No detectable pneumothorax. Heart/Mediastinum: Unremarkable. No cardiomegaly. Bones/joints: Unremarkable. Soft tissues: Residual subcutaneous emphysema noted in the left chest wall. IMPRESSION: 1. No detectable pneumothorax. 2. No evidence of pneumonia or interstitial edema.
--- NOTE | 2022-10-29 10:24 | EXP.SURG.PN ---
Subjective Narrative: No issues. Tolerating chest tube out. Patient states that she has been discharged. Last chest x-ray was yesterday morning. Patient asks for some Tylenol 3 prior to discharge. Exam Data for Last 24 hours Vital signs and Labs for Last 24 Hours: Temp Pulse Resp BP Pulse Ox 98.6 F 82 20 156/60 H 97 10/29/22 08:00 10/29/22 08:00 10/29/22 08:00 10/29/22 08:00 10/29/22 08:00 I & O for Last 24 hours: Intake & Output 10/26/22 10/27/22 10/28/22 10/29/22 11:59 11:59 11:59 11:59 Intake Total 709 / 709 2827 / 2827 420 / 420 Output Total 200 / 200 1255 / 1255 1350 / 1350 Balance 509 / 509 1572 / 1572 -930 / -930 Weight 202 lb 13.204 oz 225 lb 4.8 oz 228 lb 14.4 oz Routine Chest/Breast/Axilla Exam Comments: Dressing intact. Progress Note: A&P Assessment and plan (1) Spontaneous pneumothorax: Status: Acute Assessment and plan: Chest x-ray prior to discharge. (2) Breast mass: Status: Acute (3) COPD (chronic obstructive pulmonary disease): Status: Acute (4) Tobacco abuse: Status: Acute
[2022-10-29 11:41] VITALS: BP 130/76; PULSE 81; RESP 20; TEMP 36.9; O2SAT 92
--- NOTE | 2022-10-29 12:03 | PC.NURSE ---
pt has been discahrged form the unit. Took all of her belongigns with her and voiced understandin gof all discahrge education and follow up appts. sorrels brought o2. saline lock discontinued.
--- NOTE | 2022-10-30 13:20 | CARE MANAGER ---
Patient states that she did not sisal picker her inhalers as she cannot afford them. We discussed costs. Patient did go home with Oxygen. Spoke with MD, pharmacy and Luis. All the alternatives to what she was prescribed are expensive. We even looked into nebulizer treatments. Patient did not have follow up appointment scheduled so I transferred her to surgical office to make an appointment. AMIE Fortune
== END 2022-10-29 12:04 | disposition home or self-care (01) | DRG 201 ==
LOC: ER 17:36 → 2ND 22:54
PROVIDERS: Admitting Provider Internal Medicine Adolescent Medicine; Emergency Provider Emergency Medicine; Visit Provider Internal Medicine Adolescent Medicine
DX: J93.83 Other pneumothorax (principal); Z85.3 Personal history of malignant neoplasm of breast; Z87.442 Personal history of urinary calculi; J44.9 Chronic obstructive pulmonary disease, unspecified; N63.0 Unspecified lump in unspecified breast; F17.210 Nicotine dependence, cigarettes, uncomplicated
CPT/HCPCS: 32556; 32551; 36415; 71045; 71046; 71250; 80048; 80053; 85025; 99285; C9803; U0003; U0005

== ENCOUNTER → 2022-11-09 11:28 | Outpatient (CLI) | payer SELFPAY ==
--- NOTE | 2022-11-09 11:31 | XR_ITS ---
FINAL REPORT CLINICAL HISTORY: pneumothoax follow up COMPARISON: 10/29/2022 FINDINGS: PA and lateral views of the chest were obtained. The cardiac and mediastinal silhouettes are within normal limits. . There is emphysema and evidence of granulomatous disease. There is left lower lobe atelectasis with small left effusion. The effusion has not changed since previous. The previously seen right effusion has resolved. There is no pneumothorax or acute osseous abnormality. IMPRESSION: No change in the small left effusion. Previously seen right effusion resolved. No evidence of pneumothorax. Reviewed, Interpreted and Dictated by Zoe Doan MD Transcribed by Maria L Iverson Authenticated and . [facility]
== END ==
LOC: RAD 11:29
PROVIDERS: Visit Provider Surgery
DX: J93.83 Other pneumothorax (principal)
CPT/HCPCS: 71046

== ENCOUNTER → 2022-12-12 14:03 | Outpatient (CLI) | payer SELFPAY ==
--- NOTE | 2022-12-12 14:17 | US_ITS ---
PROCEDURE INFORMATION: Exam: US Right Breast, Complete US Left Breast, Complete MG Bilateral Diagnostic Breast Tomosynthesis Exam date and time: 12/12/2022 2:10 PM Age: 62 years old Clinical indication: Right breast palpable lump; Left breast swelling; Personal history of right breast cancer; Lumpectomy and radiation therapy and chemotherapy; Surgery Breast CA 1996; Additional info: Palp on right breast noticed less than a year ago, swollen lymph nodes under left arm, right clear nipple discharge for about 6 months TECHNIQUE: Imaging protocol: Complete ultrasound of all four quadrants of the right breast and the retroareolar regions, including ultrasound of the axilla when performed. Complete ultrasound of all four quadrants of the left breast and the retroareolar regions, including ultrasound of the axilla when performed. Bilateral Diagnostic tomosynthesis and 2D mammography including computer-aided detection (CAD) when performed. Unilateral or bilateral exam. COMPARISON: No relevant prior studies available. FINDINGS: MAMMOGRAPHY: The breast tissue is composed of scattered areas of fibroglandular density. Irregular mass containing pleomorphic microcalcifications is identified in the right approximate 12 o'clock periareolar region. The mass measures approximately 2.4 x 3.1 x 2.6 cm in dimension. The calcifications appear to be predominantly confined to the mass . There is significant nipple areolar retraction on the right and this is either due to the mass currently present or due to the prior history of lumpectomy for carcinoma in the right breast. There are no prior studies available for comparison. Additional linear calcifications are noted more posteriorly in the right upper outer quadrant separate from the aforementioned mass. They are adjacent to coarse dystrophic calcifications and it is unclear if this represents suspicious intraductal calcium versus post lumpectomy fat necrosis and benign secretory calcium. Diffuse skin thickening on the right may be due to radiation fibrosis or due to local extension of tumor into the overlying skin. No axillary adenopathy. Evaluation of the left breast demonstrates mild diffuse skin thickening. No intraparenchymal breast lesions are identified. The patient reports a palpable abnormality in the left axilla which is too far superior to be seen on mammographic images. ULTRASOUND: Sonographic images of both breasts including the retroareolar regions, all 4 quadrants and the axilla demonstrates an irregularly marginated hypoechoic solid mass in the right retroareolar region corresponding to the mass on mammography. It contains multiple calcifications with calcifications extending into the nipple areolar complex better seen on sonography. The nipple areolar complex furthermore is retracted. This is best appreciated on series 1, image 35. The mass measures approximately 2.9 x 1.9 x 3.7 cm in dimension. No axillary adenopathy on the right. Few scattered benign cysts are noted in the left breast. Evaluation of the left axilla demonstrates a lobulated heterogeneous hypoechoic solid mass measuring 4.4 x 2.4 x 4.6 cm in dimension. This likely reflects conglomerate adenopathy. Additional lobulated solid mass in the left axilla measures 3.1 x 2.5 x 2.0 cm. This likely reflects additional adenopathy. IMPRESSION: 1. Findings highly suggestive of right breast cancer with secondary signs of malignancy including nipple and areolar retraction and architectural distortion. 2. Left axillary masses likely reflect adenopathy. The mild diffuse skin thickening on the left is likely due to mechan
== END ==
PROVIDERS: Visit Provider Surgery
DX: N63.10 Unspecified lump in the right breast, unspecified quadrant (principal); N63.0 Unspecified lump in unspecified breast
CPT/HCPCS: 76641; 77062; 77066; G0279